=== PATIENT | male | born 1955 | race Caucasian/White ===

== ENCOUNTER 2023-02-26 09:56 | Emergency (ER) | payer MEDICARE ==
[~2023-02-26 09:56] MED LIST: Iopamidol 370 76% 100 ML VIAL ONE
[2023-02-26 10:39] LABS: #Lymphocytes 0.7 thou/uL (1.20-3.40); #Monocytes 0.6 thou/uL (0.11-0.59); #Neutrophils 10.8 thou/uL (1.40-6.50); %Basophils 0.4 % (0.0-1.0); %Eosinophils 0.1 % (0.0-10.0); %Lymphocytes 5.4 % (21.0-51.0); %Neutrophils 89.3 % (42.0-75.0); Hemoglobin 15.4 g/dL (14.0-18.0); Mean Corpuscular HGB CONC 32.8 g/dL (32.0-36.0); Mean Corpuscular Hemoglobin 30.1 pg (27.0-31.0); Mean Corpuscular Volume 91.7 fl (78.0-98.0); Mean Platelet Volume 10.5 fL (7.4-10.4); Platelet Count 126 10x3/uL (130-400); RBC Distribution Width 13.1 % (11.5-14.5); Red Blood Cell (RBC) Count 5.12 mill/uL (4.70-6.10); White Blood Cell (WBC) Count 12.1 10x3/uL (4.8-10.8)
[2023-02-26] MEDS ORDERED: Sodium Chloride 0.9% 1,000 ML ONE (10:46)
[2023-02-26] MEDS ORDERED: Ondansetron PF 4 MG/2 ML Vial ONE (10:46)
[2023-02-26 10:54] LABS: ALT (SGPT) 21 U/L (8-55); AST (SGOT) 21 U/L (5-34); Alkaline Phosphatase 76 U/L (40-110); Anion Gap 18 mmol/L (10-20); BUN (Urea Nitrogen) 19 mg/dL (8.4-25.7); Bilirubin, Total 0.8 mg/dL (0.2-1.2); Calc. Creatinine Clearance 0 mL/min (70-130); Calcium 10.1 mg/dL (7.8-10.44); Carbon Dioxide 23 mmol/L (23-31); Chloride 102 mmol/L (98-107); Estimated GFR 74; Globulin 2.6 g/dL (2.4-3.5); Glucose 151 mg/dL (80-115); Lipase 15 U/L (8-78); Potassium 4.4 mmol/L (3.5-5.1); Protein, Total 7.6 g/dL (5.8-8.1); Sodium 139 mmol/L (136-145)
[2023-02-26] MEDS ORDERED: Promethazine HCl 25 MG/ML VIAL ONE (10:55)
[2023-02-26 13:08] LABS: SARS-CoV-2 NAA Rapid Test Not Detected (NotDetected)
[2023-02-26] MEDS ORDERED: Morphine 4 MG/ML VIAL ONE (14:50)
== END 2023-02-26 16:35 | disposition short-term general hospital (02) ==
LOC: NAV ERS 09:56
DX: K56.609 Unspecified intestinal obstruction, unspecified as to partial versus complete obstruction (principal); Z48.815 Encounter for surgical aftercare following surgery on the digestive system; Z94.4 Liver transplant status; Z20.822 Contact with and (suspected) exposure to COVID-19
CPT/HCPCS: 71045; 74177; 80053; 83605; 83690; 85025; 96361; 96374; 96375; J2270; J2405; J2550; J7050; Q9967; U0002